=== PATIENT | male | born 1995 | race American Indian/Alaskan Native ===

== ENCOUNTER 2018-05-26 03:15 | Inpatient (IN) | payer SELFPAY ==
[2018-05-26 04:01] LABS: Hematocrit 43.2 % (35.5-45.6); Hemoglobin 13.9 gm/dl (11.8-15.2); Mean Corpuscular HGB Conc 32 % (32-34); Mean Corpuscular Volume 75 fl (84-94); Platelet Count 236 K/mm3 (140-440); Red Blood Count 5.78 M/mm3 (3.65-5.03); Red Cell Distribution Width 12.6 % (13.2-15.2)
[2018-05-26 04:24] LABS: Alanine Aminotransferase 22 units/L (7-56); Albumin 4.6 g/dL (3.9-5); BUN/Creatinine Ratio 12; Blood Urea Nitrogen 11 mg/dL (9-20); Calcium 9.8 mg/dL (8.4-10.2); Hemolysis Index 12
[2018-05-26 05:53] LABS: Basophils % (Manual) 0 % (0.0-1.8); Eosinophils % (Manual) 0 % (0.0-4.3); Myelocytes # (Manual) 0.3 K/mm3; Total Cells Counted 100
[2018-05-26 05:54] LABS: Ovalocytes 1+; Stomatocytes 1+
[2018-05-26 06:54] LABS: Bilirubin,Urine NEG (Negative); Blood,Urine NEG (Negative); Color,Urine Yellow (Yellow); Mucus,Urine 3+ /HPF; Urobilinogen,Urine < 2.0 mg/dL (<2.0)
[2018-05-26] MEDS ORDERED: SUBLIMAZE IV ONE ×2 (07:21→10:24)
[2018-05-26] MEDS ORDERED: ZOFRAN IV ONE (07:21)
[2018-05-26] MEDS ORDERED: NACL 0.9% 1000 ML 1,000 ML IV ONE ×2 (07:22→09:00)
--- NOTE | 2018-05-26 07:27 | Emergency Department Report ---
HPI - General Chief Complaint: Abdominal Pain Time Seen by Provider: 05/26/18 07:16 - [facility] HPI: Room 18 The patient is 23-year-old male presenting with a chief complaint abdominal pain. Patient states his symptoms began yesterday afternoon with diffuse a bdominal discomfort. Patient states he felt as though he had gas and drank some soup the pain did not improve. Patient has had a decreased appetite and attempted to be some dumplings this morning at 01:00 did not improve his pain. Patient states his pain is localized to the right lower quadrant sharp in nature. Patient with nausea and vomiting. Patient is a 4-5/10. The patient had a subjective fever at home Location: Abdomen Duration: [See above] Quality: Sharp Severity:4-5/10 Modifying factors: [see above] Context: [see above] Mode of transportation: [not driving] ED Past Medical Hx - Past Medical History Previous Medical History?: No - Surgical History Past Surgical History?: No - Family History Family history: no significant - Social History Smoking Status: Current Some Day Smoker Substance Use Type: None (denies illicit drug use), Alcohol (occasional) ED Review of Systems ROS: Stated complaint: ABD PAIN Other details as noted in HPI Constitutional: fever (subjective) Eyes: denies: eye pain ENT: denies: throat pain Respiratory: no symptoms reported Cardiovascular: denies: chest pain Endocrine: no symptoms reported Gastrointestinal: abdominal pain, nausea, vomiting Genitourinary: denies: dysuria Musculoskeletal: denies: back pain Neurological: denies: headache Physical Exam - Physical Exam Vital Signs: Vital Signs 05/26/18 05/26/18 05/26/18 03:26 05:26 05:30 Temperature 99.1 F Pulse Rate 100 H 86 Respiratory 20 16 Rate Blood Pressure 140/83 130/72 Blood Pressure [Right] O2 Sat by Pulse 98 100 100 Oximetry 05/26/18 05/26/18 05/26/18 05:35 05:36 05:46 Temperature 98.6 F Pulse Rate 90 90 Respiratory 20 20 16 Rate Blood Pressure 130/72 Blood Pressure 130/72 [Right] O2 Sat by Pulse 100 100 100 Oximetry Physical Exam: GENERAL: The patient is well-developed well-nourished male lying on stretcher not appearing to be in acute distress. [] HEENT: Normocephalic. Atraumatic. Extraocular motions are intact. Patient has moist mucous membranes. NECK: Supple. Trachea midline CHEST/LUNGS: Clear to auscultation. There is no respiratory distress noted. HEART/CARDIOVASCULAR: Regular. There is no tachycardia. There is no gallop rub or murmur. ABDOMEN: Abdomen is soft, with trace tenderness to palpation in the right upper quadrant and significant discomfort to palpation in the right lower quadrant. The remainder of the abdomen is benign. There is no guarding. Negative obturator sign. Patient has normal bowel sounds. There is no abdominal distention. SKIN: There is no rash. There is no edema. There is no diaphoresis. NEURO: The patient is awake, alert, and oriented. The patient is cooperative. The patient has normal speech MUSCULOSKELETAL: There is no evidence of acute injury. ED Course Vital Signs 05/26/18 05/26/18 05/26/18 03:26 05:26 05:30 Temperature 99.1 F Pulse Rate 100 H 86 Respiratory 20 16 Rate Blood Pressure 140/83 130/72 Blood Pressure [Right] O2 Sat by Pulse 98 100 100 Oximetry 05/26/18 05/26/18 05/26/18 05:35 05:36 05:46 Temperature 98.6 F Pulse Rate 90 90 Respiratory 20 20 16 Rate Blood Pressure 130/72 Blood Pressure 130/72 [Right] O2 Sat by Pulse 100 100 100 Oximetry - Consultations Consultation #1: 05/26/18 08:15 Surgery paged ED Medical Decision Making - Lab Data Result diagrams: 05/26/18 03:38 05/26/18 03:38 Laboratory Tests 05/26/18 05/26/18 05/26/18 03:38 03:38 05:57 WBC 16.0 H RBC 5.78 H Hgb 13.9 Hct 43.2 MCV 75 L MCH 24 L MCHC 32 RDW 12.6 L Plt Count 236 Add Manual Diff Complete Total Counted 100 Seg Neutrophils % Facility Attendant Seg Neuts % (Manual) 85.0 H Band Neutrophils % 6.0 Lymphocytes % (Manual) 5.0 L Reactive Lymphs % (Man) 0 Monocytes % (Manual) 1.0 Eosinophils % (Manual) 0 Basophils % (Manual) 0 Metamyelocytes % 1.0 Myelocytes % 2.0 Promyelocytes % 0 Blast Cells % 0 Nucleated RBC % Not Reportable Seg Neutrophils # Man 13.6 H Band Neutrophils # 1.0 Lymphocytes # (Manual) 0.8 L Abs React Lymphs (Man) 0.0 Monocytes # (Manual) 0.2 Eosinophils # (Manual) 0.0 Basophils # (Manual) 0.0 Metamyelocytes # 0.2 Myelocytes # 0.3 Promyelocytes # 0.0 Blast Cells # 0.0 WBC Morphology Not Reportable Hypersegmented Neuts Not Reportable Hyposegmented Neuts Not Reportable Hypogranular Neuts Not Reportable Smudge Cells Not Reportable Toxic Granulation Not Reportable Toxic Vacuolation Not Reportable Dohle Bodies Not Reportable Pelger-Huet Anomaly Not Reportable Kayli Rods Not Reportable Platelet Estimate Appears normal Clumped Platelets Not Reportable Plt Clumps, EDTA Not Reportable Large Platelets Not Reportable Giant Platelets Not Reportable Platelet Satelliting Not Reportable Plt Morphology Comment Not Reportable RBC Morphology Not Reportable Dimorphic RBCs Not Reportable Polychromasia Not Reportable Hypochromasia Not Reportable Poikilocytosis Not Reportable Anisocytosis Not Reportable Microcytosis Not Reportable Macrocytosis Not Reportable Spherocytes Not Reportable Pappenheimer Bodies Not Reportable Sickle Cells Not Reportable Target Cells Not Reportable Tear Drop Cells Not Reportable Ovalocytes 1+ Stomatocytes 1+ Helmet Cells Not Reportable Dudley-Greenhorn Bodies Not Reportable [place] Rings Not Reportable [place] Cells Not Reportable Bite Cells Not Reportable Crenated Cell Not Reportable Elliptocytes Not Reportable Acanthocytes (Spur) Not Reportable Rouleaux Not Reportable Hemoglobin C Crystals Not Reportable Schistocytes Not Reportable Malaria parasites Not Reportable Ronak Bodies Not Reportable Hem Pathologist Commnt No Sodium 136 L Potassium 3.9 Chloride 97.7 L Carbon Dioxide 24 Anion Gap 18 BUN 11 Creatinine 0.9 Estimated GFR > 60 BUN/Creatinine Ratio 12 Glucose 147 H Calcium 9.8 Total Bilirubin 1.60 H AST 19 ALT 22 Alkaline Phosphatase 60 Total Protein 7.8 Albumin 4.6 Albumin/Globulin Ratio 1.4 Urine Color Yellow Urine Turbidity Turbid Urine pH 5.0 Ur Specific [place] 1.031 H Urine Protein 30 mg/dl Urine Glucose (UA) Neg Urine Ketones Neg Urine Blood Neg Urine Nitrite Neg Urine Bilirubin Neg Urine Urobilinogen < 2.0 Ur Leukocyte Esterase Neg Urine WBC (Auto) 10.0 H Urine RBC (Auto) 5.0 U Epithel Cells (Auto) < 1.0 Urine Mucus 3+ Urine Yeast (Budding) 2+ - Radiology Data Radiology results: report reviewed (CT abdomen and pelvis), image reviewed (CT abdomen and pelvis) [facility] [address] [place] [address] Cat Scan Report Signed Patient: SHRAVAN BOWMAN MR#: [id number] : 1995 Acct:[id number] Age/Sex: 23 / M ADM Date: 05/26/18 Loc: ED Attending Dr: Ordering Physician: IBAN NG MD Date of Service: 05/26/18 Procedure(s): CT abdomen pelvis w con Accession Number(s): [id number] cc: IBAN NG MD FINAL REPORT EXAM: CT ABDOMEN PELVIS W CON HISTORY: right lower quadrant abdominal pain TECHNIQUE: CT images are acquired through the Abdomen and Pelvis in venous and delayed phases following intravenous administration of contrast. Transaxial, coronal and sagittal reformations are provided. PRIORS: None FINDINGS: Partially visualized intrathoracic contents are unremarkable. The liver, gallbladder, pancreas, spleen, and adrenal glands are unremarkable. Kidneys show no worrisome lesions, hydronephrosis, or calculi. Urinary bladder is unremarkable. Small and large bowel are normal in caliber. The appendix is dilated up to 18 millimeters with a thickened wall and a 7 millimeter appendicolith near the origin. No pneumoperitoneum or focal fluid collection to suggest abscess formation. Mild periappendiceal stranding and edema. Aorta is normal in course and caliber. Superficial soft tissues are unremarkable. No acute or aggressive appearing skeletal findings. IMPRESSION: Acute appendicitis. Dr. Mason discussed findings with Dr. Ng at 0714 central Time on 05/26/2018 immediately following the examination. Transcribed By: MB Dictated By: GARLAND MASON MD Electronically Authenticated By: GARLAND MASON MD Signed Date/Time: 05/26/18816 DD/ 4 TD/TT: 05/26/18814 - Differential Diagnosis appendicitis, gastritis, renal colic Critical care attestation.: If time is entered above; I have spent that time in minutes in the direct care of this critically ill patient, excluding procedure time. ED Disposition Clinical Impression: Acute abdominal pain, Acute appendicitis, Leukocytosis Disposition: DC-09 OP ADMIT IP TO THIS HOSP Is pt being admited?: Yes Does the pt Need Aspirin: No Condition: Fair Referrals: VITO VARGAS MD [Primary Care Provider] - 3-5 Days Time of Disposition: 08:21
--- NOTE | 2018-05-26 08:17 | Cat Scan Report ---
FINAL REPORT EXAM: CT ABDOMEN PELVIS W CON HISTORY: right lower quadrant abdominal pain TECHNIQUE: CT images are acquired through the Abdomen and Pelvis in venous and delayed phases follow ing intravenous administration of contrast. Transaxial, coronal and sagittal reformations are provide d. PRIORS: None FINDINGS: Partially visualized intrathoracic contents are unremarkable. The liver, gallbladder, pancreas, spleen, and adrenal glands are unremarkable. Kidneys show no worrisome lesions, hydronephrosis, or calculi. Urinary bladder is unremarkable. Small and large bowel are normal in caliber. The appendix is dilated up to 18 millimeters with a thic kened wall and a 7 millimeter appendicolith near the origin. No pneumoperitoneum or focal fluid colle ction to suggest abscess formation. Mild periappendiceal stranding and edema. Aorta is normal in course and caliber. Superficial soft tissues are unremarkable. No acute or aggressive appearing skeletal findings. IMPRESSION: Acute appendicitis. Dr. Cote discussed findings with Dr. Rosario at 0714 central Time on 05/26/2018 immediately following the examination.
[2018-05-26] MEDS ORDERED: ZOSYN/NS 4.5GM/100ML 4.5 GM/100 ML VIAL IV ONE (08:20)
--- NOTE | 2018-05-26 12:02 | Anesthesia Day of Surgery ---
Anesthesia Day of Surgery - Day of Surgery Patient Examined: Yes Patient H&P Reviewed: Yes Patient is NPO: Yes
--- NOTE | 2018-05-26 12:03 | Anesthesia Consultation ---
Anesthesia Consult and Med Hx Date of service: 05/26/18 - Airway Anesthetic Teeth Evaluation: Good ROM Head & Neck: Adequate Mental/Hyoid Distance: Adequate Mallampati Class: Class I Intubation Access Assessment: Good - Pre-Operative Health Status ASA Pre-Surgery Classification: ASA1, Emergency Proposed Anesthetic Plan: General - Pulmonary Hx Smoking: No - Hematic Hx Sickle Cell Disease: No
[2018-05-26] MEDS ORDERED: SUBLIMAZE IV PRN (12:04)
[2018-05-26] MEDS ORDERED: DILAUDID IV PRN ×2 (12:04→20:52)
[2018-05-26] MEDS ORDERED: ZOFRAN IV PRN ×3 (12:04→20:52)
--- NOTE | 2018-05-26 12:18 | Consultation ---
History of Present Illness Consult date: 05/26/18 Reason for consult: abdominal pain Requesting physician: IBAN NG Chief complaint: 23yo M with a one-day history of abdominal pain, nausea, vomiting, fever. Patient reports that yesterday afternoon he began to have generalized abdominal pain. It localized to the right lower quadrant. He felt very warm but did not measures temperature. He was unable to keep any food or liquid down. He has never had anything like this before. Past History Past Medical History: No medical history Past Surgical History: No surgical history Social history: smoking (occasionally), alcohol abuse (occasionally). denies: prescription drug abuse, IV drug use Family history: no significant family history Medications and Allergies Allergies Allergy/AdvReac Type Severity Reaction Status Date / Time Sulfa (Sulfonamide Allergy Swelling Verified 05/26/18 03:31 Antibiotics) Active Meds: Active Medications Acetaminophen (Tylenol) 650 mg PO PREOP NR Stop: 05/26/18 23:59 Fentanyl (Sublimaze) 50 mcg IV Q5MIN PRN PRN Reason: Pain , Severe (7-10) Gabapentin (Neurontin) 300 mg PO PREOP NR Stop: 05/26/18 23:59 Hydromorphone HCl (Dilaudid) 0.5 mg IV Q10MIN PRN PRN Reason: Pain , Severe (7-10) Lactated Ringer's (Lactated Ringers) 1,000 mls @ 100 mls/hr IV DIRECT SINDI Ondansetron HCl (Zofran) 4 mg IV ONCE PRN PRN Reason: Nausea And Vomiting Review of Systems - Constitutional fever, no chills, no chronic pain - Cardiovascular no chest pain, no shortness of breath - Respiratory no cough - Gastrointestinal abdominal pain, nausea, vomiting, dyspepsia/bloating (mild), no hematemesis, no coffee ground emesis, no BRBPR, no melena, no hematochezia - Genitourinary no dysuria - Integumentary no redness, no sores, no wounds Exam Vital Signs Temp Pulse Resp BP Pulse Ox 99.1 F 100 H 20 140/83 98 05/26/18 03:26 05/26/18 03:26 05/26/18 03:26 05/26/18 03:26 05/26/18 03:26 - General physical appearance Positive: no distress, no pain, other (does not appear toxic) - Eyes Positive: normal occular movement. Negative: icteric - Respiratory Positive: normal expansion, normal respiratory effort, clear to auscultation - Cardiovascular Rhythm: regular - Abdomen Abdomen: Present: soft, tender (focally in the RLQ. No rovsing's No pelvic shake tenderness), bowel sounds hypoactive, distended (mild). Absent: guarding, rigid , wound, surgical scars - Integumentary no rash, no growths, no abnormal pigmentation - Neurologic Neurologic: alert and oriented to time, place and person, motor strength and sensation are grossly intact - Psychiatric Psychiatric: appropriate mood/affect, intact judgment & insight Results - Labs 05/26/18 03:38 05/26/18 03:38 Abnormal lab results 05/26/18 05/26/18 05/26/18 Range/Units 03:38 03:38 05:57 WBC 16.0 H (4.5-11.0) K/mm3 RBC 5.78 H (3.65-5.03) M/mm3 MCV 75 L (84-94) fl MCH 24 L (28-32) pg RDW 12.6 L (13.2-15.2) % Seg Neuts % (Manual) 85.0 H (40.0-70.0) % Lymphocytes % (Manual) 5.0 L (13.4-35.0) % Seg Neutrophils # Man 13.6 H (1.8-7.7) K/mm3 Lymphocytes # (Manual) 0.8 L (1.2-5.4) K/mm3 Sodium 136 L (137-145) mmol/L Chloride 97.7 L (98-107) mmol/L Glucose 147 H (75-100) mg/dL Total Bilirubin 1.60 H (0.1-1.2) mg/dL Ur Specific [place] 1.031 H (1.003-1.030) Urine WBC (Auto) 10.0 H (0.0-6.0) /HPF Diabetes panel 05/26/18 Range/Units 03:38 Sodium 136 L (137-145) mmol/L Potassium 3.9 (3.6-5.0) mmol/L Chloride 97.7 L (98-107) mmol/L Carbon Dioxide 24 (22-30) mmol/L BUN 11 (9-20) mg/dL Creatinine 0.9 (0.8-1.5) mg/dL Glucose 147 H (75-100) mg/dL Calcium 9.8 (8.4-10.2) mg/dL AST 19 (5-40) units/L ALT 22 (7-56) units/L Alkaline Phosphatase 60 (35-129) units/L Total Protein 7.8 (6.3-8.2) g/dL Albumin 4.6 (3.9-5) g/dL Calcium panel 05/26/18 Range/Units 03:38 Calcium 9.8 (8.4-10.2) mg/dL Albumin 4.6 (3.9-5) g/dL Pituitary panel 05/26/18 Range/Units 03:38 Sodium 136 L (137-145) mmol/L Potassium 3.9 (3.6-5.0) mmol/L Chloride 97.7 L (98-107) mmol/L Carbon Dioxide 24 (22-30) mmol/L BUN 11 (9-20) mg/dL Creatinine 0.9 (0.8-1.5) mg/dL Glucose 147 H (75-100) mg/dL Calcium 9.8 (8.4-10.2) mg/dL Adrenal panel 05/26/18 Range/Units 03:38 Sodium 136 L (137-145) mmol/L Potassium 3.9 (3.6-5.0) mmol/L Chloride 97.7 L (98-107) mmol/L Carbon Dioxide 24 (22-30) mmol/L BUN 11 (9-20) mg/dL Creatinine 0.9 (0.8-1.5) mg/dL Glucose 147 H (75-100) mg/dL Calcium 9.8 (8.4-10.2) mg/dL Total Bilirubin 1.60 H (0.1-1.2) mg/dL AST 19 (5-40) units/L ALT 22 (7-56) units/L Alkaline Phosphatase 60 (35-129) units/L Total Protein 7.8 (6.3-8.2) g/dL Albumin 4.6 (3.9-5) g/dL - Imaging CT scan - abdomen: report reviewed, image reviewed CT scan - pelvis: report reviewed, image reviewed Assessment and Plan - Patient Problems (1) Acute appendicitis Current Visit: Yes Status: Acute Qualifiers: Acute appendicitis type: with localized peritonitis Appendicitis perforation presence: without perforation Plan to address problem: Pt stable. Based on history, exam, and CT, patient appears to have everything consistent with acute appendicitis. Discussed surgery vs medical therapy. Discussed Pros/Cons of each. Pt wished to proceed with surgery. Procedure, risks, benefits discussed. All questions answered. Consent obtained. Will proceed to OR today. [id number]
[2018-05-26] MEDS ORDERED: TYLENOL PO NR (13:00)
[2018-05-26] MEDS ORDERED: LACTATED RINGERS 1,000 ML IV SCH (13:00)
[2018-05-26] MEDS ORDERED: NEURONTIN PO NR (13:00)
[2018-05-26] MEDS ORDERED: DIPRIVAN 10 MG/ML IV ONE (13:34)
[2018-05-26] MEDS ORDERED: SUBLIMAZE ONE (13:34)
[2018-05-26] MEDS ORDERED: QUELICIN ONE (13:35)
[2018-05-26] MEDS ORDERED: ZEMURON IV ONE (13:35)
[2018-05-26] MEDS ORDERED: XYLOCAINE CARDIAC IV ONE (13:35)
[2018-05-26] MEDS ORDERED: VERSED ONE ×2 (13:39→15:08)
[2018-05-26] MEDS ORDERED: TYLENOL ONE (13:40)
[2018-05-26] MEDS ORDERED: VERSED IV NR (14:00)
[2018-05-26] MEDS ORDERED: TYLENOL PO ONE ×2 (14:03→14:10)
[2018-05-26] MEDS ORDERED: DECADRON ONE (14:03)
[2018-05-26] MEDS ORDERED: ZOFRAN ONE (14:04)
[2018-05-26] MEDS ORDERED: LACTATED RINGERS 1,000 ML ONE (14:11)
[2018-05-26] MEDS ORDERED: MARCAINE 0.5% INFILTRATI ONE ×2 (14:14→14:16)
[2018-05-26] MEDS ORDERED: XYLOCAINE 1% 20 mL ONE (14:14)
[2018-05-26] MEDS ORDERED: XYLOCAINE 1% 20 mL INFILTRATI ONE (14:16)
[2018-05-26] MEDS ORDERED: ANCEF ONE (14:18)
[2018-05-26] MEDS ORDERED: TORADOL ONE (14:45)
[2018-05-26] MEDS ORDERED: ROBINUL ONE (14:45)
[2018-05-26] MEDS ORDERED: BLOXIVERZ ONE (14:45)
--- NOTE | 2018-05-26 14:58 | Post Operative Note ---
Date of procedure: 05/26/18 (dictation:[id number]) Pre-op diagnosis: acute appendicitis Post-op diagnosis: same Findings: thickened appendix, some thin yellow fluid in the adjacent area. No obvious perforation. Procedure: lap appy Anesthesia: GETA Surgeon: BERNY MOBLEY Estimated blood loss: minimal Pathology: list (appendix) Specimen disposition: to lab Condition: stable Disposition: PACU
[2018-05-26] MEDS ORDERED: SODIUM CHLORIDE FLUSH SYRINGE 10 ML IV PRN ×2 (14:59→20:52)
[2018-05-26] MEDS ORDERED: NORCO 5/325 PO PRN (14:59)
[2018-05-26] MEDS ORDERED: MORPHINE IV PRN (14:59)
[2018-05-26] MEDS ORDERED: TYLENOL PO PRN ×2 (14:59→20:52)
[2018-05-26] MEDS ORDERED: NACL 0.9% 1000 ML 1,000 ML IV SCH (15:00)
--- NOTE | 2018-05-26 15:56 | Post Anesthesia Evaluation ---
- Post Anesthesia Evaluation Patient Participated: Yes Airway Patent: Yes Stable Respiratory Function: Yes Nausea/Vomiting: No Temp > 96.8F: Yes Pain Manageable: Yes Adequeate Hydration: Yes Anesthesia Complications: No Block Receding Appropriately: Not Applicable Patient on Ventilator: No
--- NOTE | 2018-05-26 16:01 | Operative Report ---
PREOPERATIVE DIAGNOSIS: Acute appendicitis. POSTOPERATIVE DIAGNOSIS: Acute appendicitis. PROCEDURE: Laparoscopic appendectomy. ATTENDING PHYSICIAN: Sergei Cortes MD ANESTHESIA: General. ESTIMATED BLOOD LOSS: Minimal. FLUIDS: 1 liter. URINE OUTPUT: 100 mL. FINDINGS: Thickened retrocecal appendix with a small amount of thin yellow fluid in the vicinity. No obvious evidence of perforation. Rest of the abdomen did not show any obvious abnormalities. SPECIMENS: Appendix. DRAINS: None. COMPLICATIONS: None. DISPOSITION: Stable, transferred to Recovery Room. INDICATIONS: This is a 23-year-old male who presented with a 1-day history of right lower quadrant pain associated with nausea, vomiting, fevers. CT scan showed evidence of acute appendicitis. The patient subsequently need for laparoscopic appendectomy. Procedure, risks, benefits were explained to the patient. Risks included but were not limited to infection, bleeding, pain, injury to surrounding structures, possible need for open surgery, possible need for further procedures in the future. The patient understood and consented. OPERATIVE NOTE: The patient was brought to the operating room and placed on the table in supine position. After adequate general anesthesia was found, the patient was prepped and draped in the usual sterile fashion. Timeout had been called. SCDs and Todd catheter were in place. After time-out was done, I then proceeded to place a Veress needle in left upper quadrant. I was able to insufflate in the first attempt. Then, using the Optiview technique, I placed a 12 mm port in the left lower quadrant and entered the peritoneal cavity safely. I examined the area where the Veress needle had been inserted. There was no evidence of any injury. Two more 5 mm ports were placed in the midline, one at the subumbilical position and then one in the suprapubic position. Please note that all sites had been injected with 0.5% Marcaine and 1% lidocaine combination. I began by mobilizing a portion of the cecum from the lateral wall as well as the appendix. As it was retrocecal, it needed that mobility to bring the appendix up. I then began dividing the mesoappendix with the Harmonic scalpel down to the base. Once the base was cleaned off, then I divided the base from the cecum with a laparoscopic stapler using a blue load. Specimen was left on the side. I used a Ray-Rene to clean up the thin yellow fluid that was in the vicinity as well as in the pelvis. There was a minimal amount and it did not appear to be pus. Therefore, no formal irrigation was felt to be necessary. We then placed the Ray-Rene and the specimen in the EndoCatch bag and removed it from the left lower quadrant site. We did have to stretch that side out a little bit to get the bag out. Using the Vitaly-Bran fascial closure device with 0 Vicryl stitch, I closed the fascia at the left lower quadrant site. We injected additional local into that left lower quadrant site. Since skin sites were closed with 4-0 Monocryl subcuticular stitches, skin was cleaned and dried, Dermabond was placed. The patient tolerated the procedure well. There were no complications. All counts were correct at the end of the case. I spoke with his at the end of the case. JOB# [id number] MAYA/MONIE
[2018-05-26] MEDS ORDERED: BENADRYL IV PRN (19:52)
[2018-05-26] MEDS ORDERED: REGLAN IV PRN (20:52)
--- NOTE | 2018-05-26 21:01 | Event Note ---
Date: 05/26/18 See dictated history and physical in the reports Acute appendicitis SIRS Patient went for appendectomy Possible discharge tomorrow after coordinating with surgery
[2018-05-26] MEDS: PEPCID IV SCH (21:35)
[2018-05-26] MEDS: SODIUM CHLORIDE FLUSH SYRINGE 10 ML IV SCH (21:38)
--- NOTE | 2018-05-26 21:42 | History and Physical Report ---
CHIEF COMPLAINT: Right lower quadrant pain since morning. HISTORY OF PRESENT ILLNESS: A 23-year-old male with no significant past medical history, comes in for severe right lower quadrant pain since yesterday and more so since morning. Also, the patient is nauseous. The patient's pain is about 10 on a scale of 1-10. The patient ate some dumplings around 1:00 a.m. It did not improve the pain. It became worse. Vomited 2-3 times. The pain is about 5 on a scale of 1-10, sometimes 10/10. Food is an exacerbating factor. Not eating and drinking are relieving factor. PAST MEDICAL HISTORY: None. PAST SURGICAL HISTORY: None. FAMILY HISTORY: No significant family history. SOCIAL HISTORY: Smokes about half a pack a day. Alcohol occasionally. No illicit drug use. REVIEW OF SYSTEMS: Significant for right lower quadrant pain since yesterday, more so since morning. Pain is about ranging from 5 to 10/10, associated with nausea and vomiting x 2. Otherwise, review of systems negative. PHYSICAL EXAMINATION: GENERAL: Young male, cooperative during examination, in mild distress secondary to pain in the right lower quadrant. VITAL SIGNS: Temperature is 99.1, pulse rate 100, respirations are 20, blood pressure 140/83. HEENT: Unremarkable. Pupils equal and reactive. NECK: Supple, no lymphadenopathy, no thyromegaly. LUNGS: Clear to auscultation and percussion. Good air entry. CARDIOVASCULAR: S1, S2 heard. No gallop, no murmur, no rub. Apical impulse in left fifth intercostal space and midclavicular line. ABDOMEN: Soft. Tenderness present in the right lower quadrant, guarding present. Some rebound tenderness present. Bowel sounds are normal. EXTREMITIES: Good pedal pulses. No pedal edema. CENTRAL NERVOUS SYSTEM: Alert and oriented x 4, nonfocal exam. LABORATORY AND DIAGNOSTIC DATA: Significant for white count of 16,000, H and H are 13.9 and 43.8, platelet count is 236,000. Sodium is 136, glucose is 147. Total bilirubin is 1.6, BUN and creatinine 11 and 0.9. Urine specific gravity is 1.031. Abdominal CAT scan shows acute appendicitis. Appendix is dilated up to 18 mm with a thickened wall and a 7 mm appendicolith near the origin, no pneumoperitoneum or focal fluid collection to suggest abscess formation. Mild periappendiceal stranding and edema. ASSESSMENT AND PLAN: 1. Systemic inflammatory response syndrome, the patient's blood count is high. The patient initiated on IV antibiotics. The patient has a white count of 16,000. The patient is on Zosyn 4.5 q.8h. 2. Acute appendicitis. The patient will be taken for emergent appendectomy by Dr. Cortes. Postop instructions as per Dr. Cortes. Probably clear liquids were started. IV Dilaudid 0.5 every 3 hours p.r.n. 3. Deep venous thrombosis prophylaxis, sequential compression devices and Lovenox from tomorrow. DISCHARGE PLANNING ISSUES: The patient may be discharged tomorrow if Dr. Cortes agrees. JOB# [id number] JAMIL/MONIE
[2018-05-26] MEDS ORDERED: SODIUM CHLORIDE FLUSH SYRINGE 10 ML IV SCH (22:00)
[2018-05-27 04:43] LABS: Basophils % (Auto) 0.4 % (0.0-1.8); Hematocrit 42.4 % (35.5-45.6); Hemoglobin 13.4 gm/dl (11.8-15.2); Lymphocytes # (Auto) 0.7 K/mm3 (1.2-5.4); Lymphocytes % (Auto) 6.7 % (13.4-35.0); Mean Corpuscular HGB Conc 32 % (32-34); Mean Corpuscular Volume 76 fl (84-94); Monocytes # (Auto) 0.5 K/mm3 (0.0-0.8); Monocytes % (Auto) 4.8 % (0.0-7.3); Platelet Count 191 K/mm3 (140-440); Red Blood Count 5.54 M/mm3 (3.65-5.03); Red Cell Distribution Width 12.9 % (13.2-15.2)
[2018-05-27 05:07] LABS: BUN/Creatinine Ratio 13; Blood Urea Nitrogen 10 mg/dL (9-20); Calcium 9.3 mg/dL (8.4-10.2); Hemolysis Index 6
[2018-05-27] MEDS ORDERED: ZOSYN/NS 4.5GM/100ML 4.5 GM/100 ML VIAL IV SCH (06:00)
[2018-05-27] MEDS: SODIUM CHLORIDE FLUSH SYRINGE 10 ML IV SCH (09:20)
[2018-05-27] MEDS: PEPCID IV SCH (09:20)
[2018-05-27 09:29] VITALS: BP 129/63
--- NOTE | 2018-05-27 12:11 | Discharge Summary ---
Providers - Providers Date of Admission: 05/26/18 14:59 Date of discharge: 05/27/18 Attending physician: BERNY MOBLEY MD 05/26/18 08:20 Consult to Physician [CONS] Urgent Comment: Consulting Provider: BERNY MOBLEY Physician Instructions: Reason For Exam: acute appendicitis [facility] Reason for admission: acute appendicitis Condition: Fair Pertinent studies: Ct abd/pelvis Procedures: lap appy Hospital course: uneventful Disposition: DC-01 TO HOME OR SELFCARE Time spent for discharge: 30min - Discharge Diagnoses (1) Acute appendicitis Status: Acute Qualifiers: Acute appendicitis type: with localized peritonitis Appendicitis perforation presence: without perforation Appendicitis abscess presence: without abscess Core Measure Documentation - Palliative Care Palliative Care/ Comfort Measures: Not Applicable - Core Measures Any of the following diagnoses?: none - VTE Discharge Requirements Deep Vein Thrombosis/Pulmonary Embolism Present on Admission: No Exam - Constitutional Vitals: Temp Pulse Resp BP Pulse Ox 98.6 F 81 18 129/63 95 05/27/18 08:45 05/27/18 08:45 05/27/18 08:45 05/27/18 08:45 05/27/18 09:06 General appearance: Present: no acute distress, other (looks better) - EENT Eyes: Present: PERRL - Respiratory Respiratory effort: normal - Abdominal General gastrointestinal: Present: soft, non-tender, distended (minimal), other (Incisions C/D/I) - Integumentary Integumentary: Present: clear, warm, dry - Psychiatric Psychiatric: appropriate mood/affect, intact judgment & insight Plan Activity: other (no driving until cleared by surgeon) Diet: regular Wound: open to air, keep clean and dry, other (May shower today. Pat dry wounds. ) Special Instructions: no heavy lifting (or strenuous activity for 6 weeks) Follow up with: VITO VARAGS MD [Primary Care Provider] - 3-5 Days BERNY MOBLEY MD [Staff Physician] - 14 Days Prescriptions: HYDROcodone/APAP 5-325 [[place] 5-325 mg TAB] 1 each PO Q6H PRN #30 tablet PRN Reason: Pain, Moderate (4-6)
--- NOTE | 2018-05-27 13:45 | Progress Note ---
Assessment and Plan Assessment and plan: Acute appendicitis s/p appendectomy yesterday 05/26/18. Patient medically stable for discharge History Interval history: Less abd pain Had appendectomy yesterday Hospitalist Physical - Constitutional Vitals: Temp Pulse Resp BP Pulse Ox 98.6 F 81 18 129/63 95 05/27/18 08:45 05/27/18 08:45 05/27/18 08:45 05/27/18 08:45 05/27/18 09:06 General appearance: Present: no acute distress, other (looks better) - Neck Neck: Present: supple - Respiratory Respiratory effort: normal Respiratory: bilateral: CTA - Cardiovascular Rhythm: regular Heart Sounds: Present: S1 & S2 - Extremities Extremities: No edema - Abdominal General gastrointestinal: soft, non-tender, non-distended, normal bowel sounds - Psychiatric Psychiatric: appropriate mood/affect, intact judgment & insight Results - Labs CBC & Chem 7: 05/27/18 04:09 05/27/18 04:09 Labs: Laboratory Last Values WBC 9.8 K/mm3 (4.5-11.0) 05/27/18 04:09 RBC 5.54 M/mm3 (3.65-5.03) H 05/27/18 04:09 Hgb 13.4 gm/dl (11.8-15.2) 05/27/18 04:09 Hct 42.4 % (35.5-45.6) 05/27/18 04:09 MCV 76 fl (84-94) L 05/27/18 04:09 MCH 24 pg (28-32) L 05/27/18 04:09 MCHC 32 % (32-34) 05/27/18 04:09 RDW 12.9 % (13.2-15.2) L 05/27/18 04:09 Plt Count 191 K/mm3 (140-440) 05/27/18 04:09 Lymph % (Auto) 6.7 % (13.4-35.0) L 05/27/18 04:09 [place] % (Auto) 4.8 % (0.0-7.3) 05/27/18 04:09 Eos % (Auto) 0.0 % (0.0-4.3) 05/27/18 04:09 Baso % (Auto) 0.4 % (0.0-1.8) 05/27/18 04:09 Lymph # 0.7 K/mm3 (1.2-5.4) L 05/27/18 04:09 [place] # 0.5 K/mm3 (0.0-0.8) 05/27/18 04:09 Eos # 0.0 K/mm3 (0.0-0.4) 05/27/18 04:09 Baso # 0.0 K/mm3 (0.0-0.1) 05/27/18 04:09 Add Manual Diff Complete 05/26/18 03:38 Total Counted 100 05/26/18 03:38 Seg Neutrophils % 88.1 % (40.0-70.0) H 05/27/18 04:09 Seg Neuts % (Manual) 85.0 % (40.0-70.0) H 05/26/18 03:38 Band Neutrophils % 6.0 % 05/26/18 03:38 Lymphocytes % (Manual) 5.0 % (13.4-35.0) L 05/26/18 03:38 Reactive Lymphs % (Man) 0 % 05/26/18 03:38 Monocytes % (Manual) 1.0 % (0.0-7.3) 05/26/18 03:38 Eosinophils % (Manual) 0 % (0.0-4.3) 05/26/18 03:38 Basophils % (Manual) 0 % (0.0-1.8) 05/26/18 03:38 Metamyelocytes % 1.0 % 05/26/18 03:38 Myelocytes % 2.0 % 05/26/18 03:38 Promyelocytes % 0 % 05/26/18 03:38 Blast Cells % 0 % 05/26/18 03:38 Nucleated RBC % Not Reportable 05/26/18 03:38 Seg Neutrophils # 8.6 K/mm3 (1.8-7.7) H 05/27/18 04:09 Seg Neutrophils # Man 13.6 K/mm3 (1.8-7.7) H 05/26/18 03:38 Band Neutrophils # 1.0 K/mm3 05/26/18 03:38 Lymphocytes # (Manual) 0.8 K/mm3 (1.2-5.4) L 05/26/18 03:38 Abs React Lymphs (Man) 0.0 K/mm3 05/26/18 03:38 Monocytes # (Manual) 0.2 K/mm3 (0.0-0.8) 05/26/18 03:38 Eosinophils # (Manual) 0.0 K/mm3 (0.0-0.4) 05/26/18 03:38 Basophils # (Manual) 0.0 K/mm3 (0.0-0.1) 05/26/18 03:38 Metamyelocytes # 0.2 K/mm3 05/26/18 03:38 Myelocytes # 0.3 K/mm3 05/26/18 03:38 Promyelocytes # 0.0 K/mm3 05/26/18 03:38 Blast Cells # 0.0 K/mm3 05/26/18 03:38 WBC Morphology Not Reportable 05/26/18 03:38 Hypersegmented Neuts Not Reportable 05/26/18 03:38 Hyposegmented Neuts Not Reportable 05/26/18 03:38 Hypogranular Neuts Not Reportable 05/26/18 03:38 Smudge Cells Not Reportable 05/26/18 03:38 Toxic Granulation Not Reportable 05/26/18 03:38 Toxic Vacuolation Not Reportable 05/26/18 03:38 Dohle Bodies Not Reportable 05/26/18 03:38 Pelger-Huet Anomaly Not Reportable 05/26/18 03:38 Kayli Rods Not Reportable 05/26/18 03:38 Platelet Estimate Appears normal 05/26/18 03:38 Clumped Platelets Not Reportable 05/26/18 03:38 Plt Clumps, EDTA Not Reportable 05/26/18 03:38 Large Platelets Not Reportable 05/26/18 03:38 Giant Platelets Not Reportable 05/26/18 03:38 Platelet Satelliting Not Reportable 05/26/18 03:38 Plt Morphology Comment Not Reportable 05/26/18 03:38 RBC Morphology Not Reportable 05/26/18 03:38 Dimorphic RBCs Not Reportable 05/26/18 03:38 Polychromasia Not Reportable 05/26/18 03:38 Hypochromasia Not Reportable 05/26/18 03:38 Poikilocytosis Not Reportable 05/26/18 03:38 Anisocytosis Not Reportable 05/26/18 03:38 Microcytosis Not Reportable 05/26/18 03:38 Macrocytosis Not Reportable 05/26/18 03:38 Spherocytes Not Reportable 05/26/18 03:38 Pappenheimer Bodies Not Reportable 05/26/18 03:38 Sickle Cells Not Reportable 05/26/18 03:38 Target Cells Not Reportable 05/26/18 03:38 Tear Drop Cells Not Reportable 05/26/18 03:38 Ovalocytes 1+ 05/26/18 03:38 Stomatocytes 1+ 05/26/18 03:38 Helmet Cells Not Reportable 05/26/18 03:38 [place] Bodies Not Reportable 05/26/18 03:38 [place] Rings Not Reportable 05/26/18 03:38 [place] Cells Not Reportable 05/26/18 03:38 Bite Cells Not Reportable 05/26/18 03:38 Crenated Cell Not Reportable 05/26/18 03:38 Elliptocytes Not Reportable 05/26/18 03:38 Acanthocytes (Spur) Not Reportable 05/26/18 03:38 Rouleaux Not Reportable 05/26/18 03:38 Hemoglobin C Crystals Not Reportable 05/26/18 03:38 Schistocytes Not Reportable 05/26/18 03:38 Malaria parasites Not Reportable 05/26/18 03:38 [place] Bodies Not Reportable 05/26/18 03:38 Hem Pathologist Commnt No 05/26/18 03:38 Sodium 141 mmol/L (137-145) 05/27/18 04:09 Potassium 4.4 mmol/L (3.6-5.0) 05/27/18 04:09 Chloride 102.4 mmol/L (98-107) 05/27/18 04:09 Carbon Dioxide 27 mmol/L (22-30) 05/27/18 04:09 Anion Gap 16 mmol/L 05/27/18 04:09 BUN 10 mg/dL (9-20) 05/27/18 04:09 Creatinine 0.8 mg/dL (0.8-1.5) 05/27/18 04:09 Estimated GFR > 60 ml/min 05/27/18 04:09 BUN/Creatinine Ratio 13 % 05/27/18 04:09 Glucose 117 mg/dL (75-100) H 05/27/18 04:09 Calcium 9.3 mg/dL (8.4-10.2) 05/27/18 04:09 Total Bilirubin 1.60 mg/dL (0.1-1.2) H 05/26/18 03:38 AST 19 units/L (5-40) 05/26/18 03:38 ALT 22 units/L (7-56) 05/26/18 03:38 Alkaline Phosphatase 60 units/L (35-129) 05/26/18 03:38 Total Protein 7.8 g/dL (6.3-8.2) 05/26/18 03:38 Albumin 4.6 g/dL (3.9-5) 05/26/18 03:38 Albumin/Globulin Ratio 1.4 % 05/26/18 03:38 Urine Color Yellow (Yellow) 05/26/18 05:57 Urine Turbidity Turbid (Clear) 05/26/18 05:57 Urine pH 5.0 (5.0-7.0) 05/26/18 05:57 Ur Specific [place] 1.031 (1.003-1.030) H 05/26/18 05:57 Urine Protein 30 mg/dl mg/dL (Negative) 05/26/18 05:57 Urine Glucose (UA) Neg mg/dL (Negative) 05/26/18 05:57 Urine Ketones Neg mg/dL (Negative) 05/26/18 05:57 Urine Blood Neg (Negative) 05/26/18 05:57 Urine Nitrite Neg (Negative) 05/26/18 05:57 Urine Bilirubin Neg (Negative) 05/26/18 05:57 Urine Urobilinogen < 2.0 mg/dL (<2.0) 05/26/18 05:57 Ur Leukocyte Esterase Neg (Negative) 05/26/18 05:57 Urine WBC (Auto) 10.0 /HPF (0.0-6.0) H 05/26/18 05:57 Urine RBC (Auto) 5.0 /HPF (0.0-6.0) 05/26/18 05:57 U Epithel Cells (Auto) < 1.0 /HPF (0-13.0) 05/26/18 05:57 Urine Mucus 3+ /HPF 05/26/18 05:57 Urine Yeast (Budding) 2+ /HPF 05/26/18 05:57
== END 2018-05-27 13:06 | disposition home or self-care (01) | DRG 342 ==
LOC: ED 03:15 → OR 03:15 → EDSTATUS 13:49 → 3B-SURG 14:59
PROVIDERS: ADMIT Surgery; ATTEND Surgery
PROC: 0DTJ4ZZ Resection of Appendix, Percutaneous Endoscopic Approach (ICD-10-PCS; principal; 2018-05-26)
DX: K35.30 Acute appendicitis with localized peritonitis, without perforation or gangrene (principal); R65.10 Systemic inflammatory response syndrome (SIRS) of non-infectious origin without acute organ dysfunction; F17.200 Nicotine dependence, unspecified, uncomplicated; D72.829 Elevated white blood cell count, unspecified; Z72.89 Other problems related to lifestyle; Z88.2 Allergy status to sulfonamides
CPT/HCPCS: 36415; 74177; 80048; 80053; 81001; 85007; 85025; 88304; 94760; G0378; J0330; J0690; J1100; J1200; J1885; J2001; J2250; J2270; J2405; J2543; J2704; J2710; J3010; J7030; J7120; Q9967